=== PATIENT | male | born 1945 | race Caucasian/White ===

== ENCOUNTER 2023-05-27 08:45 | Outpatient (OUT) | payer MEDICARE, OTHER, SELFPAY ==
[2023-05-27 09:30] LABS: Estimated Average Glucose 171 mg/dL; Glycohemoglobin A1C 7.6 % (4.5-6.2)
[2023-05-27 10:57] LABS: Alanine Aminotransferase 30 U/L (16-63); Albumin Globulin Ratio 0.8; Albumin Level 3.3 g/dL (3.4-5.0); Alkaline Phosphatase 99 U/L (46-116); Anion Gap 13.3; Aspartate Amino Transferase 23 U/L (15-37); BUN Creatinine Ratio 14.3; Bilirubin Total 0.9 mg/dL (0.2-1.0); Calcium 8.9 mg/dL (8.5-10.1); Carbon Dioxide 29.4 mmol/L (21.0-32.0); Chloride 99 mmol/L (98-107); Chol HDL Ratio 2.2; Cholesterol 96 mg/dL (<=200); Estimated GFR (African America 54 (>=60); Estimated GFR (Non-African Ame 44 (>=60); Globulin 4.1 g/dL; Glucose 161 mg/dL (74-106); HDL Cholesterol 44 mg/dL (40-60); LDL Cholesterol Calculated 38.2 mg/dL; Potassium 4.7 mmol/L (3.5-5.1); Sodium 137 mmol/L (136-145); Total Protein 7.4 g/dL (6.4-8.2); Triglycerides 69 mg/dL (<=150); Uric Acid 5.6 mg/dL (3.5-7.2); VLDL CHOLESTEROL 13.8 mg/dL
== END 2023-05-27 08:46 | disposition home or self-care (01) ==
LOC: LAB 08:45
PROVIDERS: PCP Internal Medicine; Visit Provider Internal Medicine
DX: M1A.30X0 Chronic gout due to renal impairment, unspecified site, without tophus (tophi) (principal); E11.22 Type 2 diabetes mellitus with diabetic chronic kidney disease; N18.31 Chronic kidney disease, stage 3a
CPT/HCPCS: 36415; 80053; 80061; 83036; 84550

== ENCOUNTER 2023-05-29 11:14 | Outpatient (OUT) | payer MEDICARE, OTHER, SELFPAY ==
--- NOTE | 2023-05-29 11:21 | XR_ITS ---
The [address] [address] Patient Name: ROHIT PALOMARES MRN: [id number] date: 1945 Sex: M Assigned Patient Location: RAD Current Patient Location: [facility] Accession/Order Number: [id number] Exam Date: 05/29/2023 11:25 Report Date: 05/29/2023 16:06 At the request of: MADELEINE KELLY Procedure: XR knee RT 3V EXAM: XR knee RT 3V HISTORY: Chronic Right Knee Pain M25.561 COMPARISON: None. TECHNIQUE: 3 views right knee joint. FINDINGS: Chondrocalcinosis. Severe degenerative change of the patellofemoral and lateral compartments of the knee. Mild to moderate degenerative change of the medial compartment. No fracture or dislocation. Vascular calcifications. Small knee joint effusion. XR/XR knee RT 3V IMPRESSION: Degenerative change right knee with chondrocalcinosis and small effusion but no fracture. Electronically authenticated by: YONATAN ALLISON Date: 05/29/2023 16:06
== END 2023-05-29 11:15 | disposition home or self-care (01) ==
LOC: RAD 11:16
PROVIDERS: PCP Internal Medicine; Visit Provider Internal Medicine
DX: M25.561 Pain in right knee (principal); M89.29 Other disorders of bone development and growth, multiple sites; M25.461 Effusion, right knee; M11.261 Other chondrocalcinosis, right knee
CPT/HCPCS: 73562

== ENCOUNTER 2024-02-23 03:05 | Emergency (ER) | payer MEDICARE, OTHER, SELFPAY ==
[2024-02-23 03:11] VITALS: BP 172/87; PULSE 85; TEMP 36.6; O2SAT 98; BMI 39.5
--- NOTE | 2024-02-23 03:39 | ED_ITS ---
HPI HPI - Fall General Chief Complaint: Fall Stated Complaint: FALL L FLANK PAIN Time Seen by Provider: 02/23/24 03:22 Source: patient and family Mode of arrival: walk-in Limitations: no limitations History of Present Illness HPI Narrative: slipped at home on a rug and fell onto his left side. jammed his elbow into his abdomen and cut his left forearm. Squad helped him up and applied bandage to his arm. Arrives via private vehicle. Denies striking his head. complains of pain of his left arm and abdomen. Denies pain of his lower back or hips. No neck pain or shortness of breath. Related Data Home Medications ?Medication ?Instructions ?Recorded ?Confirmed allopurinol 300 mg tablet mg 02/23/24 apixaban 5 mg tablet (Eliquis) mg 02/23/24 atorvastatin 80 mg tablet mg 02/23/24 carvedilol 25 mg tablet mg 02/23/24 hydralazine 100 mg tablet mg 02/23/24 lisinopril 20 tab 02/23/24 mg-hydrochlorothiazide 25 mg tablet metformin 500 mg tablet mg 02/23/24 Allergies Allergy/AdvReac Type Severity Reaction Status Date / Time Penicillins Allergy Verified 02/23/24 03:15 Sulfa (Sulfonamide Allergy Verified 02/23/24 03:15 Antibiotics) Opioid HPI Opioid Management Most Recent Pain and Opioid Data: No Data to Display Review of Systems ROS Status of ROS 10 or more systems reviewed and unremark able except as noted in history and below Exam Constitutional Vital Signs, click to edit/add: Last Vital Signs Temp 97.9 F 02/23/24 03:11 Pulse 85 02/23/24 03:11 Resp 18 02/23/24 03:11 BP 172/87 H 02/23/24 03:11 Pulse Ox 98 02/23/24 03:11 O2 Del Method Room Air 02/23/24 03:11 Common normals: no apparent distress, average body habitus, oriented x3, no limitations, healthy appearing, alert and well nourished [facility] Common normals: normocephalic and head/scalp atraumatic Eye Common normals: EOMs intact bilaterally and conjunctivae normal Chest Common normals: inspection of chest normal Other: mild left chest wall tenderness Respiratory Common normals: normal respiratory effort, no retractions, no use of accessory muscles and clear to auscultation bilaterally Cardio Common normals: regular rate, regular rhythm, S1 normal heart sound and S2 normal heart sound GI Common normals: Normal to inspection, nondistended, normoactive bowel sounds present Other: mild tenderness left abdominal wall Extremity Other: paper cut left forearm. tenderness left humerus but no obvious deformity Neuro Common normals: oriented x3, CN's II-XII intact bilaterally, moves all extremities and no focal motor deficits Psych Appearance: grossly normal Course Vital Signs Vital signs: Vital Signs Temperature 97.9 F 02/23/24 03:11 Pulse Rate 85 02/23/24 03:11 Respiratory Rate 18 02/23/24 03:11 Blood Pressure 172/87 H 02/23/24 03:11 Pulse Oximetry 98 02/23/24 03:11 Oxygen Delivery Method Room Air 02/23/24 03:11 Temperature 97.9 F 02/23/24 03:11 Pulse Rate 85 02/23/24 03:11 Respiratory Rate 18 02/23/24 03:11 Blood Pressure 172/87 H 02/23/24 03:11 Pulse Oximetry 98 02/23/24 03:11 Oxygen Delivery Method Room Air 02/23/24 03:11 MDM - Fall MDM Narrative Medical decision making narrative: patient slipped on a rug at home and fell onto his left side. jammed his elbow into the side of his abdomen. Has left arm pain. No focal tenderness but has pain with use of the arm. xray of the left shoulder and humerus neg. CTs neg for acute findings. Does have abnormal left renal cyst that will require follow up . patient and his informed of this finding. Has a paper cut on the left arm that will not require repair. Patient and informed of the diagnosis and patient discharged home to followup with his doctor . patient sitting on the side of the bed fully dressed and ready to go Lab Data Labs: Lab Results 02/23/24 Range/Units 03:53 WBC 9.3 (4.0-11.0) 10^3/uL RBC 4.11 L (4.70-6.10) 10^6/uL Hgb 13.7 L (14.0-18.0) g/dL Hct 42.4 (42.0-54.0) % MCV 103.2 H (80.0-94.0) fL MCH 33.3 (25.9-34.0) pg MCHC 32.3 (29.9-35.2) g/dL RDW 14.0 (11.0-15.0) % Plt Count 117 L (150-450) 10^3/uL MPV 11.0 (9.5-13.5) fL Neut % (Auto) 81.4 H (43.0-75.0) % Lymph % (Auto) 11.8 L (20.5-60.0) % [place] % (Auto) 4.5 (1.7-12.0) % Eos % (Auto) 1.6 (0.9-7.0) % Baso % (Auto) 0.3 (0.2-2.0) % Neut # (Auto) 7.6 H (1.4-6.5) 10^3/uL Lymph # (Auto) 1.1 L (1.2-3.8) 10^3/uL [place] # (Auto) 0.4 (0.3-0.8) 10^3/uL Eos # (Auto) 0.2 (0.0-0.7) 10^3/uL Baso # (Auto) 0.0 (0.0-0.1) 10^3/uL Abs Immat Gran (auto) 0.04 H (0.00-0.03) 10^3/uL Imm/Tot Granulo (auto) 0.4 (0.0-0.5) % Sodium 135 L (136-145) mmol/L Potassium 4.4 (3.5-5.1) mmol/L Chloride 101 (98-107) mmol/L Carbon Dioxide 27.2 (21.0-32.0) mmol/L Anion Gap 11.2 BUN 27.0 H (7.0-18.0) mg/dL Creatinine 1.69 H (0.70-1.30) mg/dL Est GFR ( Amer) 48 L (>=60) Est GFR (Non-Af Amer) 40 L (>=60) BUN/Creatinine Ratio 16.0 Glucose 168 H (74-106) mg/dL Lactate 2.7 H* (0.4-2.0) mmol/L Calcium 9.0 (8.5-10.1) mg/dL Total Bilirubin 0.7 (0.2-1.0) mg/dL AST 18 (15-37) U/L ALT 22 (16-63) U/L Alkaline Phosphatase 133 H (46-116) U/L Troponin I High Sens 18.3 (4.0-76.1) pg/mL Total Protein 7.2 (6.4-8.2) g/dL Albumin 3.3 L (3.4-5.0) g/dL Globulin 3.9 g/dL Albumin/Globulin Ratio 0.8 Imaging Data Abdominal x-ray: Radiologist's impression: ITS Impressions Chest CT 02/23/24 03:42 IMPRESSION: 1. No acute solid or hollow organ injury of the chest, abdomen, pelvis. 2. Mild emphysematous changes. 3. Marked atherosclerotic coronary artery disease. 4. Nonobstructing right nephrolithiasis. 5. Nonspecific 2.2 cm left renal lesion. Nonemergent follow-up CT abdomen without and with IV contrast to evaluate enhancement characteristics is recommended. 6. No acute bone abnormality. Multilevel degenerative changes of the thoracic and lumbar spine. 7. Small periumbilical and bilateral inguinal fat filled hernias without strangulation. Electronically authenticated by: MERT MCNAIR Date: 02/23/2024 06:02 Elbow X-Ray 02/23/24 03:42 IMPRESSION: Moderate degenerative changes No acute fracture Electronically authenticated by: AMARIS COTTON Date: 02/23/2024 05:50 Humerus X-Ray 02/23/24 03:42 IMPRESSION: Moderate degenerative changes No acute fracture Electronically authenticated by: AMARIS COTTON Date: 02/23/2024 05:50 Shoulder X-Ray 02/23/24 03:42 IMPRESSION: There is no acute fracture or malalignment. Moderately severe degenerative changes at the acromioclavicular and glenohumeral articulations. The bony structures are osteopenic. Electronically authenticated by: MELISSA CODY Date: 02/23/2024 05:48 Abdomen/Pelvis CT 02/23/24 03:43 IMPRESSION: 1. No acute solid or hollow organ injury of the chest, abdomen, pelvis. 2. Mild emphysematous changes. 3. Marked atherosclerotic coronary artery disease. 4. Nonobstructing right nephrolithiasis. 5. Nonspecific 2.2 cm left renal lesion. Nonemergent follow-up CT abdomen without and with IV contrast to evaluate enhancement characteristics is recommended. 6. No acute bone abnormality. Multilevel degenerative changes of the thoracic and lumbar spine. 7. Small periumbilical and bilateral inguinal fat filled hernias without strangulation. Electronically authenticated by: MERT MCNAIR Date: 02/23/2024 06:02 Discharge Plan Discharge Stand Alone Forms: Portal Instructions Chief Complaint: Fall Clinical Impression: Cyst of left kidney, Rib contusion, Abdominal wall contusion, Laceration of upper arm Patient Disposition: Home, Self-Care Prescriptions / Home Meds: No Action metformin 500 mg tablet atorvastatin 80 mg tablet carvedilol 25 mg tablet hydralazine 100 mg tablet lisinopril-hydrochlorothiazide 20-25 mg tablet allopurinol 300 mg tablet Eliquis 5 mg tablet Print Language: Kiswahili Instructions: Contusion in Adults (ED), Laceration Without Closure (ED), Rib Contusion (ED), Kidney Cyst (ED) Additional Instructions: follow up with your doctor regarding renal cyst. clean arm cut daily and re dress the site. Follow up with your doctor this week for recheck Referrals: MADELEINE KELLY [Primary Care Provider] - 1 week
--- NOTE | 2024-02-23 03:42 | CT_ITS ---
[address] [address] Patient Name: ROHIT PALOMARES MRN: [id number] date: 1945 Sex: M Assigned Patient Location: ER Current Patient Location: Accession/Order Number: [id number] Exam Date: 02/23/2024 04:28 Report Date: 02/23/2024 06:02 At the request of: MICHELLE SHARMA Procedure: CT chest w con EXAMINATION: CT chest w con, CT abdomen pelvis w con HISTORY: trauma , fell, left-side pain COMPARISON: No relevant comparison available. TECHNIQUE: Axial, Coronal, and Sagittal CT images were obtained without and/or with IV contrast as indicated by examination type. Dose reduction techniques were achieved by using automated exposure control and/or adjustment of mA and/or kV according to patient size and/or use of iterative reconstruction technique. FINDINGS: LUNGS: Mild emphysematous changes and scattered calcified granulomas. No acute infiltrates. PLEURA: No mass or effusion. VASCULATURE: No visible pulmonary arterial thrombus or attenuation. JARRET: No mass or adenopathy. MEDIASTINUM: No mass or adenopathy. CARDIAC: Cardiac pacer. No enlargement, pericardial thickening, or pericardial effusion. Marked atherosclerotic coronary artery disease. AORTA: No aneurysm or dissection.. CHEST WALL: No mass or axillary adenopathy. LIVER: No enlargement, atrophy, abnormal density, or significant focal lesion. BILIARY: No dilatation or calcification. PANCREAS: No lesion, fluid collection, ductal dilatation, or atrophy. SPLEEN: No enlargement or focal lesion. ADRENALS: No mass or enlargement. KIDNEYS: Right kidney contains a 9 mm nonobstructing stone. Projecting from posterior mid body of left kidney is a 2.2 cm complex cyst versus mass. Several benign-appearing cysts arising from both kidneys. BOWEL/MESENTERY: No visible mass, obstruction, or bowel wall thickening. AORTA/VASCULAR: No aneurysm. RETROPERITONEUM: No mass or adenopathy. LYMPH NODES: No adenopathy. URINARY BLADDER: No visible focal wall thickening, lesion, or calculus. PELVIC ORGANS: No visible mass. Pelvic organs appropriate for patient age. ABDOMINAL WALL: Small fat filled paraumbilical hernia without strangulation. Small fat filled inguinal hernias bilaterally without strangulation. BONES: Kyphosis and multilevel moderate degenerative disc disease and marked degenerative facet arthropathy. 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 OTHER: Negative. CT/CT chest w con IMPRESSION: 1. No acute solid or hollow organ injury of the chest, abdomen, pelvis. 2. Mild emphysematous changes. 3. Marked atherosclerotic coronary artery disease. 4. Nonobstructing right nephrolithiasis. 5. Nonspecific 2.2 cm left renal lesion. Nonemergent follow-up CT abdomen without and with IV contrast to evaluate enhancement characteristics is recommended. 6. No acute bone abnormality. Multilevel degenerative changes of the thoracic and lumbar spine. 7. Small periumbilical and bilateral inguinal fat filled hernias without strangulation. Electronically authenticated by: MERT MCNAIR Date: 02/23/2024 06:02
--- NOTE | 2024-02-23 03:42 | XR_ITS ---
[address] [address] Patient Name: ROHIT PALOMARES MRN: [id number] date: 1945 Sex: M Assigned Patient Location: ER Current Patient Location: ER Accession/Order Number: [id number] Exam Date: 02/23/2024 04:28 Report Date: 02/23/2024 05:50 At the request of: MICHELLE SHARMA Procedure: XR elbow LT min 3V PROCEDURE: XR elbow LT min 3V, XR humerus LT COMPARISON: None. HISTORY: injury FINDINGS: BONES:No acute fracture of the humerus or elbow. Moderate degenerative changes of the glenohumeral and elbow joint with marginal osteophyte formation. SOFT TISSUES:Negative. No visible soft tissue swelling. EFFUSION:None visible. OTHER: Negative. XR/XR elbow LT min 3V IMPRESSION: Moderate degenerative changes No acute fracture Electronically authenticated by: AMARIS COTTON Date: 02/23/2024 05:50
--- NOTE | 2024-02-23 03:42 | XR_ITS ---
[address] [address] Patient Name: ROHIT PALOMARES MRN: [id number] date: 1945 Sex: M Assigned Patient Location: ER Current Patient Location: ER Accession/Order Number: [id number] Exam Date: 02/23/2024 04:28 Report Date: 02/23/2024 05:50 At the request of: MICHELLE SHARMA Procedure: XR humerus LT PROCEDURE: XR elbow LT min 3V, XR humerus LT COMPARISON: None. HISTORY: injury FINDINGS: BONES:No acute fracture of the humerus or elbow. Moderate degenerative changes of the glenohumeral and elbow joint with marginal osteophyte formation. SOFT TISSUES:Negative. No visible soft tissue swelling. EFFUSION:None visible. OTHER: Negative. XR/XR humerus LT IMPRESSION: Moderate degenerative changes No acute fracture Electronically authenticated by: AMARIS COTTON Date: 02/23/2024 05:50
--- NOTE | 2024-02-23 03:42 | XR_ITS ---
The [address] [address] Patient Name: ROHIT PALOMARES MRN: [id number] date: 1945 Sex: M Assigned Patient Location: ER Current Patient Location: ER Accession/Order Number: [id number] Exam Date: 02/23/2024 04:28 Report Date: 02/23/2024 05:48 At the request of: MICHELLE SHARMA Procedure: XR shoulder LT min 2V EXAM: XR shoulder LT min 2V HISTORY: Injury following a fall tonight. COMPARISON: None. TECHNIQUE: 3 view left shoulder series performed. FINDINGS: The bony structures are osteopenic. There is no acute fracture. There are moderately severe degenerative changes at the acromioclavicular and glenohumeral articulations. There is a type II acromion. Visualized portions of the ribs are intact. There is no soft tissue abnormality. There are median sternotomy wires. There is a partially imaged left subclavian pacemaker. XR/XR shoulder LT min 2V IMPRESSION: There is no acute fracture or malalignment. Moderately severe degenerative changes at the acromioclavicular and glenohumeral articulations. The bony structures are osteopenic. Electronically authenticated by: MELISSA CODY Date: 02/23/2024 05:48
--- NOTE | 2024-02-23 03:43 | CT_ITS ---
[address] [address] Patient Name: ROHIT PALOMARES MRN: [id number] date: 1945 Sex: M Assigned Patient Location: ER Current Patient Location: ER Accession/Order Number: [id number] Exam Date: 02/23/2024 04:28 Report Date: 02/23/2024 06:02 At the request of: MICHELLE SHARMA Procedure: CT abdomen pelvis w con EXAMINATION: CT chest w con, CT abdomen pelvis w con HISTORY: trauma , fell, left-side pain COMPARISON: No relevant comparison available. TECHNIQUE: Axial, Coronal, and Sagittal CT images were obtained without and/or with IV contrast as indicated by examination type. Dose reduction techniques were achieved by using automated exposure control and/or adjustment of mA and/or kV according to patient size and/or use of iterative reconstruction technique. FINDINGS: LUNGS: Mild emphysematous changes and scattered calcified granulomas. No acute infiltrates. PLEURA: No mass or effusion. VASCULATURE: No visible pulmonary arterial thrombus or attenuation. JARRET: No mass or adenopathy. MEDIASTINUM: No mass or adenopathy. CARDIAC: Cardiac pacer. No enlargement, pericardial thickening, or pericardial effusion. Marked atherosclerotic coronary artery disease. AORTA: No aneurysm or dissection.. CHEST WALL: No mass or axillary adenopathy. LIVER: No enlargement, atrophy, abnormal density, or significant focal lesion. BILIARY: No dilatation or calcification. PANCREAS: No lesion, fluid collection, ductal dilatation, or atrophy. SPLEEN: No enlargement or focal lesion. ADRENALS: No mass or enlargement. KIDNEYS: Right kidney contains a 9 mm nonobstructing stone. Projecting from posterior mid body of left kidney is a 2.2 cm complex cyst versus mass. Several benign-appearing cysts arising from both kidneys. BOWEL/MESENTERY: No visible mass, obstruction, or bowel wall thickening. AORTA/VASCULAR: No aneurysm. RETROPERITONEUM: No mass or adenopathy. LYMPH NODES: No adenopathy. URINARY BLADDER: No visible focal wall thickening, lesion, or calculus. PELVIC ORGANS: No visible mass. Pelvic organs appropriate for patient age. ABDOMINAL WALL: Small fat filled paraumbilical hernia without strangulation. Small fat filled inguinal hernias bilaterally without strangulation. BONES: Kyphosis and multilevel moderate degenerative disc disease and marked degenerative facet arthropathy. 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 OTHER: Negative. CT/CT abdomen pelvis w con IMPRESSION: 1. No acute solid or hollow organ injury of the chest, abdomen, pelvis. 2. Mild emphysematous changes. 3. Marked atherosclerotic coronary artery disease. 4. Nonobstructing right nephrolithiasis. 5. Nonspecific 2.2 cm left renal lesion. Nonemergent follow-up CT abdomen without and with IV contrast to evaluate enhancement characteristics is recommended. 6. No acute bone abnormality. Multilevel degenerative changes of the thoracic and lumbar spine. 7. Small periumbilical and bilateral inguinal fat filled hernias without strangulation. Electronically authenticated by: MERT MCNAIR Date: 02/23/2024 06:02
[2024-02-23 04:00] LABS: Basophils Percent Auto 0.3 % (0.2-2.0); Eosinophils Absolute Auto 0.2 10^3/uL (0.0-0.7); Eosinophils Percent Auto 1.6 % (0.9-7.0); Hematocrit 42.4 % (42.0-54.0); Hemoglobin 13.7 g/dL (14.0-18.0); Immature Granulocytes Abs Auto 0.04 10^3/uL (0.00-0.03); Immature Granulocytes Pct Auto 0.4 % (0.0-0.5); Lymphocytes Absolute Auto 1.1 10^3/uL (1.2-3.8); Lymphocytes Percent Auto 11.8 % (20.5-60.0); Mean Corpuscular HGB Conc 32.3 g/dL (29.9-35.2); Mean Corpuscular Hemoglobin 33.3 pg (25.9-34.0); Mean Corpuscular Volume 103.2 fL (80.0-94.0); Monocytes Absolute Auto 0.4 10^3/uL (0.3-0.8); Monocytes Percent Auto 4.5 % (1.7-12.0); Neutrophils Absolute Auto 7.6 10^3/uL (1.4-6.5); Neutrophils Percent Auto 81.4 % (43.0-75.0); Platelet Count 117 10^3/uL (150-450); Red Blood Count 4.11 10^6/uL (4.70-6.10); White Blood Count 9.3 10^3/uL (4.0-11.0)
[2024-02-23 04:14] LABS: Alanine Aminotransferase 22 U/L (16-63); Albumin Globulin Ratio 0.8; Albumin Level 3.3 g/dL (3.4-5.0); Alkaline Phosphatase 133 U/L (46-116); Anion Gap 11.2; Aspartate Amino Transferase 18 U/L (15-37); Bilirubin Total 0.7 mg/dL (0.2-1.0); Carbon Dioxide 27.2 mmol/L (21.0-32.0); Chloride 101 mmol/L (98-107); Estimated GFR (African America 48 (>=60); Estimated GFR (Non-African Ame 40 (>=60); Globulin 3.9 g/dL; Glucose 168 mg/dL (74-106); Potassium 4.4 mmol/L (3.5-5.1); Sodium 135 mmol/L (136-145); Total Protein 7.2 g/dL (6.4-8.2)
[2024-02-23 04:19] LABS: Troponin I High Sensitivity 18.3 pg/mL (4.0-76.1)
[2024-02-23 04:20] LABS: Lactate/Lactic Acid 2.7 mmol/L (0.4-2.0)
[2024-02-23 06:21] VITALS: BP 156/90; PULSE 78; O2SAT 97
== END 2024-02-23 06:23 | disposition home or self-care (01) ==
PROVIDERS: Emergency Provider Internal Medicine; PCP Internal Medicine
DX: S30.1XXA Contusion of abdominal wall, initial encounter (principal); S51.812A Laceration without foreign body of left forearm, initial encounter; T14.8XXA Other injury of unspecified body region, initial encounter; N28.1 Cyst of kidney, acquired; W01.10XA Fall on same level from slipping, tripping and stumbling with subsequent striking against unspecified object, initial encounter
CPT/HCPCS: 36415; 71260; 73030; 73060; 73080; 74177; 80053; 83605; 84484; 85025; 99285; Q9966